=== PATIENT | female | born 1950 ===

== ENCOUNTER 2025-05-15 15:39 | Emergency (ER) | payer MEDICARE, SELFPAY ==
--- NOTE | ~2025-05-15 | XR_ITS ---
CLINICAL HISTORY: posterior calcaneal ulcer. osteo? Radiographs of the left foot, 3 views Comparison: None available Findings: No definitive cortical destruction. There is calcification adjacent to the tibial tuberosity at the insertion of the plantar fascia indicate Rand tendon. Periostitis is considered less likely no fracture or dislocation. Mild degenerative change. Bone mineralization is decreased. Vascular calcifications. Soft tissue swelling. Impression: No definitive radiographic evidence of osteomyelitis. Follow up is recommended. This document has been electronically signed by: Katie Barboza MD on 05/15/2025 18:22:48
--- NOTE | ~2025-05-15 | CT_ITS ---
CLINICAL HISTORY: foot infection, osteo?, pt has dialysis scheduled for Wed per PA --- Additional Notes or Special Instructions: she is ESRD, makes no urine, on HD CT left foot with contrast Comparison: CR - XR FOOT LT 2V - 05/15/25 17:20 EDT Findings: Severe diffuse soft tissue swelling of the left foot. No drainable fluid collection or abscess. Moderate to severe degenerative disease with joint space narrowing osteophytosis and subchondral cystic changes. No definite erosive changes. Diffuse osteopenia. IMPRESSION: Severe diffuse soft tissue swelling of the left foot. No drainable fluid collection or abscess. No definite erosive changes to suggest osteomyelitis which could be further evaluated with MRI of the foot with and without contrast if clinically indicated. Moderate degenerative disease and diffuse osteopenia. This document has been electronically signed by: Janae North MD on 05/15/2025 22:29:20
[2025-05-15 16:15] VITALS: BP 132/55; PULSE 59; RESP 16; TEMP 36.3; O2SAT 100; BMI 31.2
--- NOTE | 2025-05-15 16:26 | ED_ITS ---
HPI - General Adult General Chief complaint: Wound/Laceration Stated complaint: Ulcer on L foot Time Seen by Provider: 05/15/25 20:07 Source: patient and family Limitations: language barrier History of Present Illness ED Provider: Lori Skinner PA-C HPI narrative: 75-year-old female with a history of diabetes, end-stage renal disease on dialysis Wednesday, prior CVA with residual left-sided deficits, presents with a concern for left foot infection. Over the past week, the patient has developed an ulcer over the heel of the left foot. It has been leaking clear discharge. Associated redness and discomfort that has new. Denies fever. Related Data Previous Rx's ?Medication ?Instructions ?Recorded doxycycline hyclate 100 mg capsule 100 mg PO BID #19 c aps 05/16/25 oxycodone 5 mg tablet 5 mg PO Q6H PRN pain #12 tab s 05/16/25 Allergies Allergy/AdvReac Type Severity Reaction Status Date / Time No Known Allergies Allergy Verified 05/15/25 16:21 Review of Systems 2 Review of Systems: Yes all other systems are reviewed and are negative Constitutional: Constitutional: Denies fatigue and Denies fever(s) Cardiovascular: Cardiovascular: Denies chest pain and Denies dyspnea Respiratory: Respiratory: Denies dyspnea Musculoskeletal: Musculoskeletal: Denies arthralgias and Denies joint swelling Integumentary/Breasts: Skin/Breast: Reports erythema and Reports wounds Endocrine: Endocrine: Denies fatigue PMFSH Past Medical History Attestation statement: The following information was validated with the patient. Social History Social History Smoked in Last 30 Days: No Use of substances other than those prescribed or required for medical reasons: No Advance Directives: No Advance Directives Information Provided: No Do you have a plan to hurt others: No Plan Physical Exam ED Vital Signs: Vital Signs - 24 hr 05/15/25 16:15 05/15/25 20:00 05/15/25 21:51 Temperature 97.4 F 97.5 F 97.6 F Pulse Rate 59 57 67 Respiratory Rate 16 18 18 Blood Pressure 132/55 L 137/45 L 128/41 L Pulse Oximetry 100 100 100 Oxygen Delivery Method Room Air Room Air Room Air 05/16/25 00:00 05/16/25 00:40 Temperature 98.1 F 98.1 F Pulse Rate 67 67 Respiratory Rate 16 16 Blood Pressure 130/49 L 130/49 L Pulse Oximetry 100 100 Oxygen Delivery Method Room Air Room Air BMI result Body Mass Index 31.2 Const Other: Alert well-appearing Orientation/consciousness: patient oriented x3 Resp Effort & Inspection: normal respiratory effort Cardio Other: Normal peripheral perfusion, pitting edema left lower extremity is baseline Skin Other: Warm dry no rash Neuro General: patient oriented x3, no focal motor deficits and CN's II-XI intact bilaterally Extrem Other: Psych Other: Cooperative Course Course Course Narrative: RME: 72-year-old female history of end-stage renal disease, diabetes with stroke with chronic left-sided weakness presents to ED for left foot posterior calcaneal also very painful and also developing pressure ulcer in her right buttocks that is painful. Patient denies any fever or chills. Physical exam positive for posterior non draining ulcer of left foot. Labs x-ray ordered. Medications Administered Discontinued Medications Generic Name Dose Route Start Last Admin Trade Name Freq PRN Reason Stop Dose Admin Doxycycline Monohydrate 100 mg 05/16/25 00:11 05/16/25 00:28 Doxycycline Monohydrate 100 Mg Capsule PO 05/16/25 00:12 100 mg ONCE ONE Administration Iohexol 85 ml 05/15/25 21:41 05/15/25 21:41 Iohexol 350 Mg/Ml 100 Ml Infus..Btl IV 05/15/25 21:42 85 ml ONCE ONE Administration Oxycodone HCl 5 mg 05/16/25 00:22 05/16/25 00:28 Oxycodone Hcl Immed Release 5 Mg Tablet PO 05/16/25 00:23 5 mg ONCE ONE Administration Medical Decision Making Medical Decision Making [facility] Narrative: 75-year-old female with a history of diabetes, end-stage renal disease on dialysis Wednesday, prior CVA with residual left-sided deficits, presents with a concern for left foot infection. Over the past week, the patient has developed an ulcer over the heel of the left foot. It has been leaking clear discharge. Associated redness and discomfort that has new. Denies fever. Problem: End-stage renal disease, diabetes History: Per patient I have considered the following differential diagnoses: Cellulitis, purulent cellulitis, osteomyelitis, gangrene Plan: Screening labs including inflammatory markers, blood cultures and lactic were ordered from triage. X-ray ordered is indeterminate. We will obtain a CT scan. Giving morphine for pain. I have independently reviewed the following tests: Labs: No leukocytosis, not anemic, no electrolyte abnormality, creatinine 4.95 however she is due for dialysis tomorrow, ESR and CRP are elevated to some degree, lactic 1.6 X-ray left foot: mpression: No definitive radiographic evidence of osteomyelitis. Follow up is recommended. CT left foot:IMPRESSION: Severe diffuse soft tissue swelling of the left foot. No drainable fluid collection or abscess. No definite erosive changes to suggest osteomyelitis which could be further evaluated with MRI of the foot with and without contrast if clinically indicated. Moderate degenerative disease and diffuse osteopenia. Lab Data 05/15/25 16:54 05/15/25 16:54 Labs: Lab Results 05/15/25 Range/Units 16:54 WBC 7.4 (4.8-10.8) X10*3/uL RBC 4.11 L (4.20-5.50) X10*6/uL Hgb 11.7 L (12.0-16.0) g/dl Hct 36.0 L (37.0-47.0) % MCV 87.6 (80.0-98.0) fL MCH 28.5 (27.0-33.0) pg MCHC 32.5 (31.0-35.0) g/dl RDW 13.8 (11.0-16.0) % Plt Count 266 (160-400) X10*3/uL MPV 10.4 (9.4-12.3) fL Immature Gran % (Auto) 0.3 (0.0-0.4) % Neut % (Auto) 55.3 (45-73) % Lymph % (Auto) 31.7 (20-40) % [place] % (Auto) 8.0 (2-11) % Eos % (Auto) 4.2 H (0-4) % Baso % (Auto) 0.5 (0-2) % Lymph # (Auto) 2.4 (1.2-4.9) X10*3/uL [place] # (Auto) 0.6 (0.1-1.2) X10*3/uL Eos # (Auto) 0.3 (0.0-0.4) X10*3/uL Baso # (Auto) 0.0 (0.0-0.2) X10*3/uL Abs Immat Gran (auto) 0.02 (0.00-0.03) X10*3/uL Absolute Neuts (auto) 4.1 (2.0-8.3) x10*3/uL Absolute Nucleated RBC 0.000 (0.0-0.012) X10*3/uL Nucleated RBC % (auto) 0.0 (0.0-0.2) /100WBC ESR 80 H (0-20) MM/HR Sodium 137 (135-145) mmol/L Potassium 4.4 (3.3-5.1) mmol/L Chloride 96 (96-108) mmol/L Carbon Dioxide 28 (22-29) mmol/L Anion Gap 17 (12-20) BUN 49 H (9-16) mg/dL Creatinine 4.95 H* (0.5-1.4) mg/dL Estim Creat Clear Calc 8.9 Estimated GFR 9 Random Glucose 239 H (60-115) mg/dL Lactic Acid 1.6 (0.5-2.0) mmol/L Calcium 9.5 (8.4-10.2) mg/dL Total Bilirubin 0.3 (0.0-1.0) mg/dL AST 27 (5-31) U/L ALT 22 (0-31) U/L Alkaline Phosphatase 136 H (39-117) U/L C-Reactive Protein 0.79 H (< or = 0.50) mg/dL Total Protein 7.8 (6.5-8.0) g/dL Albumin 4.2 (3.5-5.0) g/dL Discharge Plan Discharge Clinical Impression: Cellulitis of foot, left Patient Disposition: Home, Self-Care Instructions: Cellulitis (ED) Additional Instructions: The CT scan of the foot revealed that you have cellulitis, there was no pocket of infection, there was no communication with the bone. Take the doxycycline as directed. Use the oxycodone as needed for your pain. This medication can be constipating, you should use an [id number] stool softener concurrently while taking the pain meds. Follow up with your primary care provider when you return home from your trip. Be sure to attend dialysis tomorrow Prescriptions: New doxycycline hyclate 100 mg capsule 100 mg PO BID Qty: 19 0RF oxycodone 5 mg tablet 5 mg PO Q6H PRN (Reason: pain) Qty: 12 0RF Rx Instructions: Partial Fill upon patient request. Interventions: ED Discharge Assessment Last Done: 05/16/25 00:40 Discharge Date/Time: 05/16/25 00:41 Print Language: Ethiopian
[2025-05-15 16:59] LABS: MANUAL DIFF FLAG NO
[2025-05-15 17:02] LABS: Hematocrit 36.0 % (37.0-47.0); Hemoglobin 11.7 g/dl (12.0-16.0); Imm Gran Abs Auto 0.02 X10*3/uL (0.00-0.03); Imm Gran Pct Auto 0.3 % (0.0-0.4); Lymphocytes Absolute Auto 2.4 X10*3/uL (1.2-4.9); Mean Corpuscular HGB Conc 32.5 g/dl (31.0-35.0); Mean Corpuscular Hemoglobin 28.5 pg (27.0-33.0); Mean Corpuscular Volume 87.6 fL (80.0-98.0); NRBC Abs Auto 0.000 X10*3/uL (0.0-0.012); NRBC Pct Auto 0.0 /100WBC (0.0-0.2); Platelet Count 266 X10*3/uL (160-400); Red Blood Count 4.11 X10*6/uL (4.20-5.50); White Blood Count 7.4 X10*3/uL (4.8-10.8)
[2025-05-15 17:27] LABS: Alanine Aminotransferase 22 U/L (0-31); Albumin Level 4.2 g/dL (3.5-5.0); Alkaline Phosphatase 136 U/L (39-117); Anion Gap 17 (12-20); Aspartate Amino Transferase 27 U/L (5-31); Blood Urea Nitrogen 49 mg/dL (9-16); Calcium 9.5 mg/dL (8.4-10.2); Carbon Dioxide 28 mmol/L (22-29); Chloride 96 mmol/L (96-108); Creatinine Clr Calc Pharmacy 8.9; Estimated Glomerular Filt Rate 9; Potassium 4.4 mmol/L (3.3-5.1); Sodium 137 mmol/L (135-145); Total Protein 7.8 g/dL (6.5-8.0)
[2025-05-15 20:00] VITALS: BP 137/45; PULSE 57; RESP 18; TEMP 36.4; O2SAT 100
[2025-05-15] MEDS: iohexoL 350 MG/ML 100 ML INFUS..BTL 85 ML IV (21:41)
[2025-05-15 21:51] VITALS: BP 128/41; PULSE 67; RESP 18; TEMP 36.4; O2SAT 100
[2025-05-16] VITALS: BP 130/49; PULSE 67; RESP 16; TEMP 36.7; O2SAT 100
[2025-05-16] MEDS: oxyCODONE HCl Immed Release 5 MG TABLET PO (00:28)
--- NOTE | 2025-05-16 00:39 | PC.NURSE ---
Medicated per mar, reviewed discharge instructions with pt and family, pt verbalized understanding, no sign of distress.
[2025-05-16 00:40] VITALS: BP 130/49; PULSE 67; RESP 16; TEMP 36.7; O2SAT 100
== END 2025-05-16 00:41 | disposition home or self-care (01) ==
PROVIDERS: Physician Assistant; Emergency Provider Emergency Medicine
DX: L03.116 Cellulitis of left lower limb (principal); E11.621 Type 2 diabetes mellitus with foot ulcer
CPT/HCPCS: 36415; 73620; 73701; 80053; 83605; 85025; 85652; 86140; 87040; 99284; Q9967

== ENCOUNTER → 2025-05-15 16:23 | Outpatient (BNV) | payer SELFPAY | PROVIDERS: Visit Provider Radiology Diagnostic Radiology | DX: R22.42 Localized swelling, mass and lump, left lower limb (principal); M65.272 Calcific tendinitis, left ankle and foot | CPT/HCPCS: 73620; 73701 ==